=== PATIENT | female | born 1990 | race Asian ===

== ENCOUNTER 2019-06-26 12:26 | Emergency (ER) | payer OTHER ==
[~2019-06-26] VITALS: Ht 152.4 cm; Wt 54.4 kg
[2019-06-26 12:37] VITALS: BP 128/74
--- NOTE | 2019-06-26 13:16 | PHYS DOC ---
Past Medical History Past Medical History: No Pertinent History Past Surgical History: No Surgical History Alcohol Use: None Drug Use: None Adult General Chief Complaint Chief Complaint: SORE THROAT [facility] HPI Patient is a 28 year old female who presents to the emergency department, accompanied by her family, with complaints of a tactile fever and sore throat since yesterday. She currently rates her pain a 9 out of 10 on the pain scale, she denies any alleviating or aggravating factors. The patient only speaks K[place], the [email or web address] translation line was used to talk with patient. ROS Patient denies any ear pain, nasal congestion, nausea, vomiting, diarrhea, abdominal pain, back pain, or rash. All other ROS is neg unless otherwise noted in HPI. Review of Systems Review of Systems See Above Allergies Allergies Allergies Coded Allergies Type Severity Reaction Last Updated Verified No Known Drug Allergies 06/26/19 No Physical Exam Physical Exam See Above Constitutional: Well developed, well nourished, no acute distress, non-toxic appearance. [] HENT: Normocephalic, atraumatic, bilateral external ears normal, bilateral TMs are normal, mild erythema of posterior pharynx, oropharynx moist, no oral exudates, nose normal. [] Eyes: PERRLA, EOMI, conjunctiva normal, no discharge. [] Neck: Normal range of motion, no tenderness, supple, no stridor. [] Cardiovascular:Heart rate regular rhythm, no murmur [] Lungs & Thorax: Bilateral breath sounds clear to auscultation [] Skin: Warm, dry, no erythema, no rash. [] Extremities: No cyanosis, ROM intact, no edema. [] Neurologic: Alert and oriented X 3, no focal deficits noted. [] Psychologic: Affect normal, judgement normal, mood normal. [] Current Patient Data Vital Signs Vital Signs Date Time Temp Pulse Resp B/P (MAP) Pulse Ox O2 Delivery O2 Flow Rate FiO2 06/26/19 12:37 97.7 106 16 128/74 (92) 99 Room Air 97.7 EKG EKG [] Radiology/Procedures Radiology/Procedures rapid strep test negative[] Course & Med Decision Making Course & Med Decision Making Pertinent Labs and Imaging studies reviewed. (See chart for details) [] Dragon Disclaimer Dragon Disclaimer This electronic medical record was generated, in whole or in part, using a voice recognition dictation system. Departure Departure Impression: Primary Impression: Pharyngitis, acute Disposition: 01 HOME, SELF-CARE Condition: STABLE Referrals: TRUONG CONCEPCION MD (PCP) Patient Instructions: Viral and Bacterial Pharyngitis, [id number] Additional Instructions: Recommend warm salt water gargles as needed for relief of discomfort. Alternate Tylenol and ibuprofen as needed for fever/pain. Follow-up with primary care doctor if symptoms persist. Return to the ER if symptoms worsen. Problem Qualifiers Primary Impression: Pharyngitis, acute Pharyngitis/tonsillitis etiology: unspecified etiology Qualified Codes: J02.9 - Acute pharyngitis, unspecified ANTHONY JANE P[employer] SPECIALIST Jun 26, 2019 13:16
== END 2019-06-26 13:23 | disposition home or self-care (01) ==
LOC: ER 12:26
DX: J02.9 Acute pharyngitis, unspecified (principal); R50.9 Fever, unspecified
CPT/HCPCS: 87070; 87880; 99283